=== PATIENT | male | born 1940 | race Asian ===

== ENCOUNTER 2024-10-31 08:32 | Inpatient (IN) | payer BC, MEDICAID, MEDICARE ==
[~2024-10-31] VITALS: Ht 157.5 cm; Wt 60.3 kg
[~2024-10-31 08:32] MED LIST: ALLO1POW; ATEN100T; ATOR20TA PO; CLOP75TA33; FENO145 PO; LOSA-412; LOVA10TA54; ecotrin PO
[2024-10-31 08:33] VITALS: O2SAT 98
[2024-10-31 09:01] LABS: HEMATOCRIT. 32.8 % (42.0-52.0); HEMOGLOBIN. 10.5 g/dL (14.0-18.0); MEAN PLATELET VOLUME 8.1 fl (7.4-10.4); PLATELET 108 x1000/uL (130-400); RED BLOOD CELL COUNT 3.66 mill/uL (4.7-6.1); RED CELL DISTRIBUTION WIDTH 18.0 % (11.6-14.6)
[2024-10-31 09:14] LABS: CREATININE 1.8 mg/dL (0.6-1.3); UREA NITROGEN BLOOD 18.0 mg/dL (9-23)
[2024-10-31 11:01] LABS: BAND% 16.0 % (1.0-6.0); LYMPHOCYTES % MANUAL 4.0 % (20.0-50.0); MONOCYTES % MANUAL 6.0 % (2.0-8.0); NEUTROPHILS % MANUAL 74.0 % (45.0-75.0)
[2024-10-31 11:02] LABS: PLATELET ESTIMATE SLIGHTLY DECREASED
[2024-10-31] MEDS: VANCOMYCIN 1G PREMIX 200 ML IV ONE (11:45)
[2024-10-31] MEDS: SODIUM CHLORIDE 0.9% (SEPSIS BOLUS) IV ONE (12:06)
[2024-10-31] MEDS: PIPERACILLIN/TAZO 3.375G/50ML 50 ML IV ONE (12:17)
[2024-10-31 12:20] LABS: ASPARTATE AMINOTRANSFERASE 27 IU/L (<34); BILIRUBIN DIRECT 0.5 mg/dL (<=3.0); BILIRUBIN TOTAL 1.2 mg/dL (0.1-1.0); PROTEIN TOTAL 6.9 g/dL (6.0-8.3)
[2024-10-31] MEDS ORDERED: ACETAMINOPHEN 325MG TABLET PO PRN ×2 (12:45)
[2024-10-31] MEDS ORDERED: MAGNESIUM/ALUMINUM HYDROXIDE/SIMETHICONE 30ML UDC PO PRN (12:45)
[2024-10-31] MEDS ORDERED: CLONIDINE 0.1MG TABLET PO PRN (12:45)
[2024-10-31] MEDS ORDERED: ZOLPIDEM TARTRATE 5MG TABLET PO PRN (12:45)
[2024-10-31] MEDS ORDERED: ONDANSETRON HCL 4MG/2ML INJ IV PRN (12:45)
[2024-10-31] MEDS ORDERED: DIPHENHYDRAMINE 50MG/ML VIAL IV PRN (12:45)
[2024-10-31 12:53] VITALS: BP 125/58; PULSE 80; RESP 19; TEMP 38.7532
[2024-10-31] MEDS ORDERED: ENOXAPARIN 30MG/0.3ML SYR SUBCUT SCH (13:30)
[2024-10-31] MEDS ORDERED: SACU1TAB PO (14:02)
[2024-10-31] MEDS ORDERED: EZET10TA81 PO (14:02)
[2024-10-31] MEDS ORDERED: METO-385 PO (14:02)
[2024-10-31] MEDS ORDERED: DAPA10TA PO (14:02)
[2024-10-31] MEDS ORDERED: ASPI-1497 PO (14:02)
[2024-10-31] MEDS ORDERED: PIOG1TAB38 MT (14:02)
[2024-10-31] MEDS: SODIUM CHLORIDE 0.9% 3ML FLUSH IVF SCH (16:22)
[2024-10-31] MEDS: BLOOD SUGAR DIAGNOSTIC STRIP TEST SCH (17:10)
[2024-10-31] MEDS: DEXTROSE 50% WATER 50ML SYRINGE IV PRN (17:20)
[2024-10-31] MEDS: INSULIN LISPRO 100 UNITS/ML SUBCUT SCH (17:40)
[2024-10-31 20:00] VITALS: BP 118/56; PULSE 74; RESP 17; TEMP 37.6; O2SAT 98
[2024-10-31] MEDS: ATORVASTATIN CALCIUM 40MG TABLET PO SCH (20:33)
[2024-10-31] MEDS: DEXT 10% WATER 1,000 ML IV SCH (21:48)
[2024-11-01] VITALS: BP 116/58; PULSE 79; RESP 18; TEMP 36.6; O2SAT 99
[2024-11-01 04:00] VITALS: BP 117/46; PULSE 71; RESP 17; TEMP 36.4; O2SAT 99
[2024-11-01] MEDS: CEFTRIAXONE 1GM/50ML 50 ML IV SCH (06:10)
[2024-11-01 08:00] VITALS: BP 122/55; PULSE 89; RESP 18; TEMP 37.1
[2024-11-01 08:07] LABS: CREATININE 1.6 mg/dL (0.6-1.3); UREA NITROGEN BLOOD 18.0 mg/dL (9-23)
[2024-11-01 08:12] LABS: HEMATOCRIT. 30.1 % (42.0-52.0); HEMOGLOBIN. 9.8 g/dL (14.0-18.0); MEAN PLATELET VOLUME 8.5 fl (7.4-10.4); PLATELET 104 x1000/uL (130-400); RED BLOOD CELL COUNT 3.34 mill/uL (4.7-6.1); RED CELL DISTRIBUTION WIDTH 18.5 % (11.6-14.6)
[2024-11-01] MEDS ORDERED: CLOPIDOGREL 75MG TABLET PO SCH (09:00)
[2024-11-01] MEDS: AZITHROMYCIN 500MG/250ML 250 ML IV SCH (10:14)
[2024-11-01] MEDS: ASPIRIN 81MG EC TABLET PO SCH (10:14)
[2024-11-01] MEDS: METOPROLOL SUCCINATE 50MG ER TABLET PO SCH (10:14)
[2024-11-01 12:00] VITALS: BP 110/55; PULSE 86; RESP 18; TEMP 38.4; O2SAT 100
[2024-11-01] MEDS: DEXT 5%/0.9% NACL 1,000 ML IV SCH (13:00)
[2024-11-01] MEDS: BLOOD SUGAR DIAGNOSTIC STRIP TEST SCH (13:15)
[2024-11-01 14:24] LABS: BAND% 30.0 % (1.0-6.0); LYMPHOCYTES % MANUAL 4.0 % (20.0-50.0); MONOCYTES % MANUAL 4.0 % (2.0-8.0); NEUTROPHILS % MANUAL 62.0 % (45.0-75.0)
[2024-11-01 14:25] LABS: PLATELET ESTIMATE SLIGHTLY DECREASED
[2024-11-01] MEDS: DEXAMETHASONE 4MG/ML 1ML VIAL IV SCH (14:54)
[2024-11-01 16:00] VITALS: BP 112/60; PULSE 72; RESP 18; TEMP 37.1; O2SAT 98
[2024-11-01 20:00] VITALS: BP 115/67; PULSE 78; RESP 19; TEMP 37.1; O2SAT 100
[2024-11-01] MEDS: ATORVASTATIN CALCIUM 20MG TABLET PO SCH (21:30)
[2024-11-02] VITALS: BP 122/62; PULSE 62; RESP 18; TEMP 36.9; O2SAT 100
[2024-11-02 04:00] VITALS: BP 118/52; PULSE 59; RESP 20; TEMP 36.6; O2SAT 100
[2024-11-02 06:59] LABS: HEMATOCRIT. 29.4 % (42.0-52.0); HEMOGLOBIN. 9.7 g/dL (14.0-18.0); MEAN PLATELET VOLUME 8.5 fl (7.4-10.4); PLATELET 103 x1000/uL (130-400); RED BLOOD CELL COUNT 3.33 mill/uL (4.7-6.1); RED CELL DISTRIBUTION WIDTH 18.4 % (11.6-14.6)
[2024-11-02 07:22] LABS: CREATININE 1.4 mg/dL (0.6-1.3); UREA NITROGEN BLOOD 18.0 mg/dL (9-23)
[2024-11-02 08:00] VITALS: BP 120/62; PULSE 69; RESP 18; TEMP 36.3
[2024-11-02 09:44] LABS: BG BASE EXCESS -4.7 mmol/L (-2.0-3.0); BG CARBOXYHEMOGLOBIN 0.0 % (0.5-1.5); BG DEOXYHEMOGLOBIN 5.1 % (0.0-5.0); BG FLOW(L/min) 0 L/min; BG HCO3 ACT 18.8 mmol/L (21.0-28.0); BG METHEMOGLOBIN 0.3 % (0.5-1.5); BG OXYGEN SATURATION 94.9 % (94.0-98.0); BG OXYHEMOGLOBIN 94.6 % (94.0-98.0); BG PCO2 30.0 mmHg (35.0-48.0); BG PH 7.415 (7.350-7.450); BG PO2 74.8 mmHg (83.0-108.0); BG SAMPLE SITE RIGHT RADIAL; BG TOTAL HEMOGLOBIN 11.5 g/dL (13.5-17.5); BG VENT MODE ROOM AIR
[2024-11-02 12:00] VITALS: BP 126/68; PULSE 68; RESP 18; TEMP 36.4; O2SAT 96
[2024-11-02 14:28] LABS: BAND% 9.0 % (1.0-6.0); LYMPHOCYTES % MANUAL 4.0 % (20.0-50.0); MONOCYTES % MANUAL 2.0 % (2.0-8.0); NEUTROPHILS % MANUAL 85.0 % (45.0-75.0)
[2024-11-02 14:29] LABS: PLATELET ESTIMATE DECREASED
[2024-11-02 16:00] VITALS: BP_SYST 109; BP_SYST 132; BP_DIAS 48; BP_DIAS 69; PULSE 64; PULSE 66; RESP 16; RESP 18; TEMP 36.3; TEMP 37.1; O2SAT 98
[2024-11-02 20:00] VITALS: BP 134/64; PULSE 62; RESP 18; TEMP 36.4; O2SAT 100
[2024-11-03] VITALS: BP 134/61; PULSE 62; RESP 18; TEMP 36.2; O2SAT 95
[2024-11-03 04:00] VITALS: BP 130/60; PULSE 65; RESP 16; TEMP 36.2; O2SAT 95
[2024-11-03 08:00] VITALS: BP 130/72; PULSE 71; RESP 15; TEMP 36.7; O2SAT 98
[2024-11-03 09:25] LABS: CREATININE 1.4 mg/dL (0.6-1.3)
[2024-11-03 09:28] LABS: UREA NITROGEN BLOOD 22.0 mg/dL (9-23)
[2024-11-03 09:29] LABS: MEAN PLATELET VOLUME 8.9 fl (7.4-10.4); PLATELET 160 x1000/uL (130-400); RED BLOOD CELL COUNT 3.81 mill/uL (4.7-6.1); RED CELL DISTRIBUTION WIDTH 18.2 % (11.6-14.6)
[2024-11-03 09:31] LABS: HEMATOCRIT. 34.4 % (42.0-52.0); HEMOGLOBIN. 11.2 g/dL (14.0-18.0)
[2024-11-03 12:00] VITALS: BP 129/81; PULSE 64; RESP 16; TEMP 36.9; O2SAT 97
[2024-11-03 16:00] VITALS: BP 124/73; PULSE 52; RESP 16; TEMP 37.1; O2SAT 97
[2024-11-03 16:15] LABS: LYMPHOCYTES % MANUAL 8.0 % (20.0-50.0); MONOCYTES % MANUAL 1.0 % (2.0-8.0); NEUTROPHILS % MANUAL 91.0 % (45.0-75.0); PLATELET ESTIMATE NORMAL
[2024-11-03 20:00] VITALS: BP 130/68; PULSE 70; RESP 19; TEMP 36.5; O2SAT 96
[2024-11-03] MEDS ORDERED: PRED10TA MT (20:52)
[2024-11-04] VITALS: BP 129/73; PULSE 66; RESP 20; TEMP 36.6; O2SAT 98
[2024-11-04 04:00] VITALS: BP 123/67; PULSE 63; RESP 20; TEMP 36.4; O2SAT 97
[2024-11-04 08:00] VITALS: BP 128/71; PULSE 70; RESP 18; TEMP 35.8; O2SAT 100
[2024-11-04 10:02] VITALS: BP 127/77; PULSE 65; RESP 18; TEMP 97.7
== END 2024-11-04 09:25 | disposition home or self-care (01) | DRG 177 ==
LOC: ER 08:51 → 8WST 11:40 → EDBEDREQ 11:44 → ENRESERV 12:08 → 8WST 11-01 11:45
PROVIDERS: ADMIT Internal Medicine; ATTEND Internal Medicine
DX: U07.1 COVID-19 (principal); G93.41 Metabolic encephalopathy; J12.82 Pneumonia due to coronavirus disease 2019; E11.649 Type 2 diabetes mellitus with hypoglycemia without coma; I25.10 Atherosclerotic heart disease of native coronary artery without angina pectoris; I10 Essential (primary) hypertension; E78.00 Pure hypercholesterolemia, unspecified; Z86.16 Personal history of COVID-19; Z86.73 Personal history of transient ischemic attack (TIA), and cerebral infarction without residual deficits
CPT/HCPCS: 36415; 36600; 71045; 80048; 80076; 82375; 82805; 82962; 83036; 83605; 84145; 85025; 87426; 93005; 99285; A4606; J0456; J0696; J1100; J1815; J2405; J2543; J3373; J7030; J7042